=== PATIENT | male | born 1940 | race Caucasian/White ===

== ENCOUNTER 2018-11-11 12:14 | Outpatient (CLI) | payer MEDICARE ==
--- NOTE | 2018-11-11 12:30 | RAD ---
RADIOGRAPH CHEST 2 VIEWS: HISTORY: 78-year-old male with dyspnea. FINDINGS: There is no air space density, pulmonary edema, pleural effusion, pneumothorax, or cardiomegaly. IMPRESSION: No acute cardiopulmonary findings. jn POS: [facility]
== END 2018-11-11 12:15 | disposition home or self-care (01) ==
LOC: RAD 12:14
PROVIDERS: ATTEND Internal Medicine Pulmonary Disease
DX: R06.00 Dyspnea, unspecified (principal)
CPT/HCPCS: 71046

== ENCOUNTER 2022-02-10 16:11 | Inpatient (IN) | payer MEDICARE ==
[2022-02-10] MEDS ORDERED: Albuterol Sulfate 2.5 mg/3 ml Neb ONE (16:16)
[2022-02-10] MEDS ORDERED: Albuterol Sulfate 2.5 mg/0.5 ml Neb ONE ×2 (16:16→17:58)
[2022-02-10 16:27] LABS: Hemoglobin 11.2 g/dL (14.0-18.0); Mean Corpuscular HGB CONC 30.9 g/dL (32.0-36.0); Mean Corpuscular Volume 80.7 fL (78.0-98.0); Mean Platelet Volume 8.1 fL (7.4-10.4); Platelet Count 308 thou/uL (130-400); RBC Distribution Width 14.5 % (11.5-14.5); Red Blood Cell (RBC) Count 4.47 mill/uL (4.70-6.10); White Blood Cell (WBC) Count 18.3 thou/uL (4.8-10.8)
[2022-02-10 16:43] LABS: Band 16 % (5-11); Lymphocytes 3 % (21-51); MDiff Complete? YES; Monocytes 8 % (0-10); Neutrophil 66 % (42-75); Platelet Morphology Comment Appears Adequate; Polychromasia SLIGHT = 2-3 cells (100X) (0-2/hpf); Reactive Lymphocytes 7 % (0-10)
[2022-02-10 16:54] LABS: ALT (SGPT) 34 U/L (8-55); AST (SGOT) 67 U/L (5-34); Albumin 3.8 g/dL (3.4-4.8); Alkaline Phosphatase 57 U/L (40-110); Anion Gap 21 mmol/L (10-20); BUN (Urea Nitrogen) 41 mg/dL (8.4-25.7); Bilirubin, Total 0.4 mg/dL (0.2-1.2); Calc. Creatinine Clearance 0 mL/min (70-130); Carbon Dioxide 19 mmol/L (23-31); Chloride 95 mmol/L (98-107); Globulin 2.8 g/dL (2.4-3.5); Glucose 174 mg/dL (83-110); Potassium 5.7 mmol/L (3.5-5.1); Protein, Total 6.6 g/dL (5.8-8.1); Sodium 129 mmol/L (136-145)
[2022-02-10] MEDS ORDERED: Lorazepam 2 MG/ML VIAL ONE ×3 (17:05→17:56)
[2022-02-10] MEDS ORDERED: Cefepime 2 GM VIAL ONE (17:10)
[2022-02-10 17:17] LABS: CKMB 15.2 ng/mL (0-6.6)
[2022-02-10 17:27] LABS: SARS-CoV-2 NAA Rapid Test Not Detected (NotDetected)
[2022-02-10] MEDS ORDERED: Vancomycin 1.5 GRAM/300 ML BAG 1.5 GM in Premix Bag 1 BAG IVPB SCH (17:30)
[2022-02-10 17:45] LABS: Actual Bicarbonate (HCO3a) 23.4 mEq/L (22-28); Analyzer IN Cardio ER; Base Excess (BEa) 0.2 mEq/L (-2.0 to +3.0); Carboxyhemoglobin (COHb) 0.3 gm% (0.0-3.0); Hemoglobin (Hb) 11.3 g/dL (14.0-18.0); O2 Tension (PaO2), arterial 80.3 mmHg (> 60.0); Potassium - ABG Lab 4.87 mmol/L (3.70-5.30); pH, Arterial 7.47 (7.35-7.45)
[2022-02-10 17:46] LABS: Puncture Site RBA
[2022-02-10] MEDS ORDERED: Furosemide 40 MG/4 ML VIAL SLOW IVP SCH (18:45)
[2022-02-10] MEDS ORDERED: Benzonatate 100 MG CAP PO PRN (18:45)
[2022-02-10] MEDS ORDERED: Cepastat Lozenges 1 LOZ PO PRN (18:45)
[2022-02-10] MEDS ORDERED: Acetaminophen 325 MG TAB PO PRN (18:45)
[2022-02-10] MEDS ORDERED: Ondansetron ODT 4 MG TAB PO PRN (18:45)
[2022-02-10] MEDS ORDERED: Acetaminophen 325 MG Suppository ONE (19:06)
[2022-02-10 20:14] LABS: Lactic Acid 1.4 mmol/L (0.5-2.2)
[2022-02-10 20:43] LABS: CKMB 11.5 ng/mL (0-6.6)
[2022-02-10] MEDS: Heparin 5,000 UNITS/ML VIAL SC SCH (21:11)
[2022-02-10] MEDS: cefTRIAXone\\ROCEPHIN 1 GM in Sodium Chloride 0.9% 100 ML IVPB SCH (21:11)
[2022-02-10] MEDS: Famotidine 20 MG TAB PO SCH (21:12)
[2022-02-10] MEDS: Thiamine HCl 200 MG/2 ML VIAL SLOW IVP SCH (22:05)
[2022-02-10] MEDS: Azithromycin 500 MG in Sodium Chloride 0.9% 250 ML 250 ML IVPB SCH (22:05)
[2022-02-11 00:23] LABS: CKMB 10.9 ng/mL (0-6.6)
[2022-02-11] MEDS: Lorazepam 2 MG/ML VIAL SLOW IVP PRN ×2 (01:31→05:27)
[2022-02-11 03:37] LABS: Hemoglobin 9.7 g/dL (14.0-18.0); Mean Corpuscular HGB CONC 30.9 g/dL (32.0-36.0); Mean Corpuscular Hemoglobin 25.5 pg (27.0-31.0); Mean Corpuscular Volume 82.6 fL (78.0-98.0); Mean Platelet Volume 8.1 fL (7.4-10.4); Platelet Count 212 thou/uL (130-400); RBC Distribution Width 14.3 % (11.5-14.5); Red Blood Cell (RBC) Count 3.82 mill/uL (4.70-6.10); White Blood Cell (WBC) Count 13.4 thou/uL (4.8-10.8)
[2022-02-11 03:51] LABS: Anion Gap 15 mmol/L (10-20); BUN (Urea Nitrogen) 45 mg/dL (8.4-25.7); Calc. Creatinine Clearance 33 mL/min (70-130); Calcium 8.6 mg/dL (7.8-10.44); Carbon Dioxide 23 mmol/L (23-31); Chloride 96 mmol/L (98-107); Glucose 232 mg/dL (83-110); Iron Less than 8 ug/dL (65-175); Iron Binding Capacity, Total 234 mcg/dL (261-462); Potassium 3.8 mmol/L (3.5-5.1); Sodium 130 mmol/L (136-145)
[2022-02-11 03:53] LABS: Creatinine, Urine Less than 20.00 mg/dL (63-166); Sodium, Urine 101 mmol/L (Not Available)
[2022-02-11 04:45] LABS: Band 27 % (5-11); Lymphocytes 2 % (21-51); MDiff Complete? YES; Monocytes 4 % (0-10); Myelocyte 1 % (0-0); Neutrophil 66 % (42-75)
[2022-02-11] MEDS: Mometasone/Formoterol 200/5 60 PUFF INH SCH ×2 (07:26→19:40)
[2022-02-11] MEDS: Folic Acid 1 MG TAB PO SCH (10:26)
[2022-02-11] MEDS: methylPREDNISolone Sod Succ 40 MG VIAL IVP SCH ×2 (12:53→22:15)
[2022-02-11] MEDS: Heparin 5,000 UNITS/ML VIAL SC SCH ×3 (12:53→20:10)
[2022-02-11] MEDS ORDERED: Lactated Ringer's 1,000 ML IV SCH (15:45)
[2022-02-11] MEDS ORDERED: Lactated Ringer's 500 ML IV SCH (16:00)
[2022-02-11 16:37] LABS: Troponin I 0.088 ng/mL (< 0.028)
[2022-02-11] MEDS ORDERED: Acetaminophen 650 MG Suppository PR PRN (17:56)
[2022-02-11] MEDS: Thiamine HCl 200 MG/2 ML VIAL SLOW IVP SCH (18:44)
[2022-02-11 19:54] VITALS: BMI 21.9
[2022-02-11] MEDS: Azithromycin 500 MG in Sodium Chloride 0.9% 250 ML 250 ML IVPB SCH (20:04)
[2022-02-11] MEDS: cefTRIAXone\\ROCEPHIN 1 GM in Sodium Chloride 0.9% 100 ML IVPB SCH (20:06)
[2022-02-11] MEDS: Famotidine 20 MG TAB PO SCH (20:10)
[2022-02-11] MEDS ORDERED: Vancomycin 1 GM in Premix Bag 1 BAG IVPB SCH (21:00)
[2022-02-11 22:06] LABS: Troponin I 0.377 ng/mL (< 0.028)
[2022-02-11] MEDS: VANCOMYCIN 1.25 GM/250 ML BAG 1.25 GM in Premix Bag 1 BAG IVPB SCH (22:15)
[2022-02-12 01:14] LABS: Troponin I 0.433 ng/mL (< 0.028)
[2022-02-12 03:49] LABS: Anion Gap 18 mmol/L (10-20); BUN (Urea Nitrogen) 47 mg/dL (8.4-25.7); Calc. Creatinine Clearance 35 mL/min (70-130); Calcium 8.9 mg/dL (7.8-10.44); Carbon Dioxide 24 mmol/L (23-31); Chloride 101 mmol/L (98-107); Glucose 153 mg/dL (83-110); Potassium 3.6 mmol/L (3.5-5.1); Sodium 139 mmol/L (136-145)
[2022-02-12 04:48] LABS: Band 14 % (5-11); Hemoglobin 10.1 g/dL (14.0-18.0); Lymphocytes 5 % (21-51); MDiff Complete? YES; Mean Corpuscular HGB CONC 31.1 g/dL (32.0-36.0); Mean Corpuscular Hemoglobin 25.8 pg (27.0-31.0); Mean Corpuscular Volume 83.2 fL (78.0-98.0); Mean Platelet Volume 8.2 fL (7.4-10.4); Monocytes 1 % (0-10); Neutrophil 80 % (42-75); Platelet Count 252 thou/uL (130-400); RBC Distribution Width 14.1 % (11.5-14.5); Red Blood Cell (RBC) Count 3.93 mill/uL (4.70-6.10); White Blood Cell (WBC) Count 17.7 thou/uL (4.8-10.8)
[2022-02-12 05:19] LABS: Critical Call Chem Troponin I RESULT DECREASING; Troponin I 0.401 ng/mL (< 0.028)
[2022-02-12] MEDS: methylPREDNISolone Sod Succ 40 MG VIAL IVP SCH ×3 (05:45→21:39)
[2022-02-12] MEDS ORDERED: Electrolyte Replacement Protocol FS PRN (05:45)
[2022-02-12] MEDS: Mometasone/Formoterol 200/5 60 PUFF INH SCH ×2 (07:06→20:11)
[2022-02-12] MEDS ORDERED: Magnesium Sulfate 2 GM in Sodium Chloride 0.9% 100 ML IVPB SCH (08:00)
[2022-02-12] MEDS: Heparin 5,000 UNITS/ML VIAL SC SCH ×3 (08:04→20:26)
[2022-02-12] MEDS: Folic Acid 1 MG TAB PO SCH (08:07)
[2022-02-12] MEDS: Lactated Ringer's 1,000 ML IV SCH ×2 (08:54→21:20)
[2022-02-12] MEDS ORDERED: Diltiazem 125 MG in Sodium Chloride 0.9% 100 ML IVPB SCH (14:45)
[2022-02-12] MEDS ORDERED: Lorazepam 2 MG/ML VIAL SLOW IVP SCH (16:45)
[2022-02-12] MEDS: Thiamine HCl 200 MG/2 ML VIAL SLOW IVP SCH (18:03)
[2022-02-12] MEDS: Lorazepam 2 MG/ML VIAL SLOW IVP PRN ×2 (18:04→23:39)
[2022-02-12] MEDS: Azithromycin 500 MG in Sodium Chloride 0.9% 250 ML 250 ML IVPB SCH (18:04)
[2022-02-12] MEDS: Famotidine 20 MG TAB PO SCH (20:25)
[2022-02-12] MEDS: cefTRIAXone\\ROCEPHIN 1 GM in Sodium Chloride 0.9% 100 ML IVPB SCH (20:26)
[2022-02-12 20:31] LABS: Vancomycin, Trough 10.7 ug/mL
[2022-02-12] MEDS: VANCOMYCIN 1.25 GM/250 ML BAG 1.25 GM in Premix Bag 1 BAG IVPB SCH (21:26)
[2022-02-12] MEDS: Vancomycin HCl 750 MG in Sodium Chloride 0.9% 250 ML 250 ML IVPB SCH (21:39)
[2022-02-13 03:56] LABS: Hemoglobin 10.1 g/dL (14.0-18.0); Mean Corpuscular HGB CONC 32.3 g/dL (32.0-36.0); Mean Corpuscular Hemoglobin 27.1 pg (27.0-31.0); Mean Corpuscular Volume 83.9 fL (78.0-98.0); Mean Platelet Volume 7.8 fL (7.4-10.4); Platelet Count 282 thou/uL (130-400); RBC Distribution Width 14.1 % (11.5-14.5); Red Blood Cell (RBC) Count 3.72 mill/uL (4.70-6.10); White Blood Cell (WBC) Count 17.5 thou/uL (4.8-10.8)
[2022-02-13 03:58] LABS: Anion Gap 17 mmol/L (10-20); BUN (Urea Nitrogen) 45 mg/dL (8.4-25.7); Calc. Creatinine Clearance 40 mL/min (70-130); Calcium 8.9 mg/dL (7.8-10.44); Carbon Dioxide 25 mmol/L (23-31); Cardiac Risk 2.3 (Less than 4.5); Chloride 106 mmol/L (98-107); Cholesterol 123 mg/dl (< 200 Desired); Glucose 174 mg/dL (83-110); HDL Cholesterol 53 mg/dL (>60 Neg Risk); LDL Cholesterol, Calculated 52 mg/dL; Potassium 3.4 mmol/L (3.5-5.1); Sodium 145 mmol/L (136-145); Triglycerides 92 mg/dL (Less than 150)
[2022-02-13 04:10] LABS: Band 3 % (5-11); Lymphocytes 1 % (21-51); MDiff Complete? YES; Metamyelocyte 2 % (0-0); Monocytes 2 % (0-10); Myelocyte 1 % (0-0); Neutrophil 91 % (42-75)
[2022-02-13] MEDS: methylPREDNISolone Sod Succ 40 MG VIAL IVP SCH ×2 (05:10→17:32)
[2022-02-13] MEDS: Aspirin 81 mg Enteric Coated Tablet PO SCH (07:32)
[2022-02-13] MEDS: Ferrous Gluconate 324 MG TAB PO SCH (07:32)
[2022-02-13] MEDS: Folic Acid 1 MG TAB PO SCH (07:32)
[2022-02-13] MEDS: Mometasone/Formoterol 200/5 60 PUFF INH SCH ×2 (07:37→19:12)
[2022-02-13] MEDS: Heparin 5,000 UNITS/ML VIAL SC SCH ×3 (07:49→20:41)
[2022-02-13] MEDS: Potassium Chloride 20 MEQ in Premix Bag 1 BAG IVPB SCH ×2 (07:49→11:05)
[2022-02-13] MEDS ORDERED: Potassium Chloride 20 MEQ TAB PO SCH (08:00)
[2022-02-13] MEDS ORDERED: Furosemide 20 MG/2 ML VIAL SLOW IVP SCH (08:30)
[2022-02-13] MEDS: Vancomycin HCl 750 MG in Sodium Chloride 0.9% 250 ML 250 ML IVPB SCH ×2 (09:52→21:34)
[2022-02-13] MEDS: Azithromycin 500 MG in Sodium Chloride 0.9% 250 ML 250 ML IVPB SCH (17:33)
[2022-02-13] MEDS: Thiamine HCl 200 MG/2 ML VIAL SLOW IVP SCH (17:33)
[2022-02-13] MEDS: Famotidine 20 MG TAB PO SCH (20:40)
[2022-02-13] MEDS: cefTRIAXone\\ROCEPHIN 1 GM in Sodium Chloride 0.9% 100 ML IVPB SCH (20:41)
[2022-02-14 04:00] LABS: Anion Gap 14 mmol/L (10-20); BUN (Urea Nitrogen) 40 mg/dL (8.4-25.7); Calc. Creatinine Clearance 44 mL/min (70-130); Calcium 8.4 mg/dL (7.8-10.44); Carbon Dioxide 25 mmol/L (23-31); Chloride 108 mmol/L (98-107); Glucose 196 mg/dL (83-110); Potassium 3.6 mmol/L (3.5-5.1); Sodium 143 mmol/L (136-145)
[2022-02-14 04:23] LABS: Band 3 % (5-11); Hemoglobin 9.5 g/dL (14.0-18.0); Hypochromia MODERATE=16-30 cells (100X) (0-5/hpf); Lymphocytes 3 % (21-51); MDiff Complete? YES; Mean Corpuscular HGB CONC 29.1 g/dL (32.0-36.0); Mean Corpuscular Hemoglobin 24.8 pg (27.0-31.0); Mean Platelet Volume 7.6 fL (7.4-10.4); Monocytes 2 % (0-10); Myelocyte 1 % (0-0); Neutrophil 91 % (42-75); Nucleated RBC 1 % (0); Platelet Count 322 thou/uL (130-400); Platelet Morphology Comment Appears Adequate; Polychromasia SLIGHT = 2-3 cells (100X) (0-2/hpf); RBC Distribution Width 14.5 % (11.5-14.5); Red Blood Cell (RBC) Count 3.85 mill/uL (4.70-6.10); Reflex for Review?? YES; Toxic Granulation SLIGHT; White Blood Cell (WBC) Count 19.6 thou/uL (4.8-10.8)
[2022-02-14] MEDS: methylPREDNISolone Sod Succ 40 MG VIAL IVP SCH (05:17)
[2022-02-14] MEDS: Mometasone/Formoterol 200/5 60 PUFF INH SCH ×2 (07:17→18:40)
[2022-02-14 09:00] LABS: Vancomycin, Trough 18.8 ug/mL
[2022-02-14] MEDS ORDERED: Amoxicillin/Potassium Clav 875 MG TAB PO SCH (09:00)
[2022-02-14] MEDS ORDERED: Furosemide 20 MG/2 ML VIAL SLOW IVP SCH (09:00)
[2022-02-14] MEDS: Aspirin 81 mg Enteric Coated Tablet PO SCH (10:08)
[2022-02-14] MEDS: Heparin 5,000 UNITS/ML VIAL SC SCH ×2 (10:08→14:50)
[2022-02-14] MEDS: Ferrous Gluconate 324 MG TAB PO SCH (10:08)
[2022-02-14] MEDS: Folic Acid 1 MG TAB PO SCH (10:08)
[2022-02-14] MEDS ORDERED: Potassium Chloride 20 MEQ TAB PO SCH (12:00)
[2022-02-14] MEDS ORDERED: cloNIDine 0.2 MG TAB PO SCH ×2 (14:15→21:00)
[2022-02-14] MEDS ORDERED: Lisinopril 10 MG TAB PO SCH (14:15)
[2022-02-14 16:32] VITALS: BP 144/67; TEMP 97.5
[2022-02-14] MEDS ORDERED: Arformoterol 15 MCG/2 ML NEB NEB SCH (18:30)
[2022-02-14] MEDS ORDERED: Budesonide 0.5 MG/2 ML NEB NEB SCH (18:30)
[2022-02-14] MEDS ORDERED: Lisinopril 5 MG TAB PO SCH (21:00)
[2022-02-14] MEDS ORDERED: Amlodipine 5 MG TAB PO SCH (21:00)
[2022-02-14] MEDS ORDERED: Metoprolol Tartrate 50 MG TAB PO SCH (21:00)
[2022-02-14] MEDS ORDERED: Lisinopril/Hydrochlorothiazide 10 mg/12.5 mg Tablet PO SCH (21:00)
[2022-02-15] MEDS ORDERED: predniSONE 20 MG TAB PO SCH (08:00)
[2022-02-15] MEDS ORDERED: Potassium Chloride 10 MEQ TAB PO SCH (08:00)
[2022-02-15] MEDS ORDERED: Amlodipine 5 MG TAB PO SCH (09:00)
[2022-02-15] MEDS ORDERED: Aspirin 325 MG TAB PO SCH (09:00)
[2022-02-15] MEDS ORDERED: Hydrochlorothiazide 25 MG TAB PO SCH (09:00)
[2022-02-15] MEDS ORDERED: Furosemide 20 MG TAB PO SCH (09:00)
== END 2022-02-14 19:21 | DRG 291 ==
LOC: ERS 16:11 → IMCU/EMU 18:06 → 2NO 02-14 07:11
PROVIDERS: ADMIT Hospitalist; ATTEND Hospitalist
PROC: 5A09357 Assistance with Respiratory Ventilation, Less than 24 Consecutive Hours, Continuous Positive Airway Pressure (ICD-10-PCS; principal; 2022-02-10)
DX: I13.0 Hypertensive heart and chronic kidney disease with heart failure and stage 1 through stage 4 chronic kidney disease, or unspecified chronic kidney disease (principal); I47.1 Supraventricular tachycardia; I50.33 Acute on chronic diastolic (congestive) heart failure; J96.21 Acute and chronic respiratory failure with hypoxia; N17.9 Acute kidney failure, unspecified; R78.81 Bacteremia; J44.1 Chronic obstructive pulmonary disease with (acute) exacerbation; E87.1 Hypo-osmolality and hyponatremia; I47.2 Ventricular tachycardia; Z20.822 Contact with and (suspected) exposure to COVID-19; E78.5 Hyperlipidemia, unspecified; Z96.611 Presence of right artificial shoulder joint; F10.10 Alcohol abuse, uncomplicated; R77.8 Other specified abnormalities of plasma proteins; N18.30 Chronic kidney disease, stage 3 unspecified; B95.7 Other staphylococcus as the cause of diseases classified elsewhere; I25.10 Atherosclerotic heart disease of native coronary artery without angina pectoris; D63.1 Anemia in chronic kidney disease; Z78.1 Physical restraint status; Z28.21 Immunization not carried out because of patient refusal; Z79.899 Other long term (current) drug therapy; Z79.51 Long term (current) use of inhaled steroids; Z79.82 Long term (current) use of aspirin; Z95.828 Presence of other vascular implants and grafts; Z98.890 Other specified postprocedural states; Z85.89 Personal history of malignant neoplasm of other organs and systems
CPT/HCPCS: 36415; 36600; 71045; 74230; 76770; 80048; 80053; 80061; 80202; 82553; 82570; 82728; 82805; 83540; 83550; 83605; 83735; 83880; 83930; 83935; 84145; 84300; 84484; 84540; 85025; 85060; 87040; 87077; 87086; 87149; 87186; 93005; 93010; 93306; 94640; 94660; 96361; 96365; 96374; 96375; 96376; J0456; J0692; J0696; J1644; J1940; J2060; J2920; J3370; J3411; J3475; J3480; J3490; J7050; J7120; J7611; J7620; J7626; U0002

== ENCOUNTER 2022-02-14 22:24 | Inpatient (IN) | payer MEDICARE ==
[2022-02-14 22:56] LABS: Actual Bicarbonate (HCO3v) 26 mEq/L (22-28); Analyzer IN Cardio ER; Base Excess 2.2 mEq/L (-2.0 to +3.0); Calcium, Ionized (venous) 1.07 mmol/L (1.16-1.32); Chloride (VBG) 105 mmol/L (98-106); Hemoglobin (Hb) 10.7 g/dL (12.6-17.4); Potassium (VBG) 3.78 mmol/L (3.70-5.30); Sodium 139.2 mmol/L (133-146); pH (venous) 7.47 (7.32-7.43)
[2022-02-14] MEDS ORDERED: predniSONE 20 MG TAB ONE (22:59)
[2022-02-14] MEDS ORDERED: cefTRIAXone\\ROCEPHIN 2 GM VIAL ONE (22:59)
[2022-02-14] MEDS ORDERED: Magnesium 2 GM/50 ML BAG (IN WATER) ONE (23:09)
[2022-02-14 23:21] LABS: Hemoglobin 9.9 g/dL (14.0-18.0); Mean Corpuscular HGB CONC 30.4 g/dL (32.0-36.0); Mean Corpuscular Hemoglobin 25.5 pg (27.0-31.0); Mean Corpuscular Volume 83.8 fL (78.0-98.0); Mean Platelet Volume 7.6 fL (7.4-10.4); Platelet Count 338 thou/uL (130-400); RBC Distribution Width 14.5 % (11.5-14.5); Red Blood Cell (RBC) Count 3.87 mill/uL (4.70-6.10); White Blood Cell (WBC) Count 21.4 thou/uL (4.8-10.8)
[2022-02-14 23:33] LABS: ALT (SGPT) 42 U/L (8-55); AST (SGOT) 48 U/L (5-34); Albumin 3.3 g/dL (3.4-4.8); Alkaline Phosphatase 62 U/L (40-110); Anion Gap 15 mmol/L (10-20); BUN (Urea Nitrogen) 41 mg/dL (8.4-25.7); Bilirubin, Total 0.4 mg/dL (0.2-1.2); Calc. Creatinine Clearance 0 mL/min (70-130); Calcium 8.4 mg/dL (7.8-10.44); Carbon Dioxide 25 mmol/L (23-31); Chloride 106 mmol/L (98-107); Globulin 2.1 g/dL (2.4-3.5); Glucose 196 mg/dL (83-110); Magnesium 1.8 mg/dL (1.6-2.6); Potassium 4.1 mmol/L (3.5-5.1); Protein, Total 5.4 g/dL (5.8-8.1); Sodium 142 mmol/L (136-145)
[2022-02-14 23:41] LABS: Band 15 % (5-11); Hypochromia SLIGHT = 6-15 cells (100X) (0-5/hpf); Lymphocytes 10 % (21-51); MDiff Complete? YES; Monocytes 10 % (0-10); Neutrophil 65 % (42-75); Platelet Morphology Comment Appears Adequate
[2022-02-14 23:45] LABS: Bacteria/HPF None Seen HPF (None Seen); Bilirubin Negative (Negative); Blood, Urine 3+ (Negative); Clarity Turbid (Clear); Glucose, Urine (Dipstick) Normal (Negative); Ketone, Urine Negative (Negative); Leukocyte 75 Leu/uL (Negative); Nitrite Negative (Negative); Protein, Urine (Dipstick) 30 mg/dL (Neg-Trace); RBC/HPF Greater than 50 HPF (0-3); Specific Gravity, Urine 1.016 (1.002-1.036); Squamous Epithelial 0-3 HPF (0-3); Urobilinogen Normal mg/dL (Less than 2); WBC/HPF Greater than 50 HPF (0-3); pH, Urine 5.5 (5.0-9.0)
[2022-02-15] MEDS ORDERED: Vancomycin 1.5 GRAM/300 ML BAG 1.5 GM in Premix Bag 1 BAG IVPB SCH (00:30)
[2022-02-15 00:31] LABS: CKMB 13.6 ng/mL (0-6.6)
[2022-02-15] MEDS ORDERED: Ondansetron ODT 4 MG TAB SL PRN (01:45)
[2022-02-15] MEDS ORDERED: Ondansetron PF 4 MG/2 ML Vial IVP PRN (01:45)
[2022-02-15] MEDS ORDERED: Acetaminophen 325 MG TAB PO PRN (01:45)
[2022-02-15 01:47] VITALS: BMI 25.4
[2022-02-15 02:16] LABS: Troponin I 0.567 ng/mL (< 0.028)
[2022-02-15 03:32] LABS: Actual Bicarbonate (HCO3a) 22.4 mEq/L (22-28); Base Excess (BEa) -2.6 mEq/L (-2.0 to +3.0); CO2 Tension 39.3 mmHg (35.0-45.0); Carboxyhemoglobin (COHb) 0.1 gm% (0.0-3.0); Hemoglobin (Hb) 10.6 g/dL (14.0-18.0); O2 Tension (PaO2), arterial 114.4 mmHg (> 60.0); Potassium - ABG Lab 3.84 mmol/L (3.70-5.30); pH, Arterial 7.37 (7.35-7.45)
[2022-02-15 03:35] LABS: ALV-art Gradient 86.025 mmHg (0-20); Puncture Site RRA
[2022-02-15] MEDS ORDERED: Magnesium 2 GM/50 ML(in water) 2 GM in Premix Bag 1 BAG IVPB SCH (04:00)
[2022-02-15] MEDS ORDERED: Acetaminophen 650 MG Suppository PR PRN (06:29)
[2022-02-15] MEDS ORDERED: Sodium Chloride 0.9% 1,000 ML IV SCH ×2 (06:45→09:12)
[2022-02-15] MEDS ORDERED: Sodium Chloride 0.9% 500 ML IV SCH (07:00)
[2022-02-15] MEDS ORDERED: VANCOMYCIN 1.25 GM/250 ML BAG IVPB SCH (09:00)
[2022-02-15] MEDS ORDERED: Morphine 2 MG/ML VIAL SLOW IVP PRN (09:10)
[2022-02-15] MEDS ORDERED: HumaLOG 300 UNITS/3 ML VIAL SC PRN (09:17)
[2022-02-15] MEDS ORDERED: Dextrose 5% in Water 1,000 ML IV PRN (09:17)
[2022-02-15] MEDS ORDERED: Dextrose 50% Abboject 50 ML SYRINGE SLOW IVP PRN (09:17)
[2022-02-15] MEDS: Cefepime 2 GM in Sodium Chloride 0.9% 100 ML IVPB SCH ×2 (10:16→20:05)
[2022-02-15] MEDS: Enoxaparin Sodium 40 MG/0.4 ML SYRINGE SC SCH (10:17)
[2022-02-15] MEDS: methylPREDNISolone Sod Succ 40 MG VIAL IVP SCH (10:18)
[2022-02-15] MEDS: Pantoprazole 40 MG VIAL IVP SCH (10:21)
[2022-02-15] MEDS: HumaLOG 300 UNITS/3 ML VIAL SC PRN ×2 (12:12→17:05)
[2022-02-15] MEDS ORDERED: Metoprolol Tartrate 50 MG TAB PO SCH (12:30)
[2022-02-15] MEDS: Arformoterol 15 MCG/2 ML NEB NEB SCH (18:37)
[2022-02-15] MEDS: Budesonide 0.5 MG/2 ML NEB NEB SCH (18:38)
[2022-02-15 19:27] LABS: SARS-CoV-2 NAA Rapid Test Not Detected (NotDetected)
[2022-02-15] MEDS: Metoprolol Tartrate 50 MG TAB PO SCH (20:06)
[2022-02-15] MEDS: MUCINEX INSTASOOTHE SPRY (115 ML BOT) PO PRN (21:49)
[2022-02-16] MEDS ORDERED: VANCOMYCIN 1.25 GM/250 ML BAG 1.25 GM in Premix Bag 1 BAG IVPB SCH (01:00)
[2022-02-16 04:14] LABS: Hemoglobin A1c 6.4 % (4.0-6.0)
[2022-02-16 04:27] LABS: Anisocytosis SLIGHT = 6-15 cells (100X) (0-5/hpf); Band 1 % (5-11); Elliptocytes SLIGHT = 2-5 cells (100X) (0-1/hpf); Hemoglobin 9.8 g/dL (14.0-18.0); Hypochromia SLIGHT = 6-15 cells (100X) (0-5/hpf); Lymphocytes 7 % (21-51); MDiff Complete? YES; Mean Corpuscular HGB CONC 30.4 g/dL (32.0-36.0); Mean Corpuscular Hemoglobin 25.3 pg (27.0-31.0); Mean Corpuscular Volume 83.2 fL (78.0-98.0); Monocytes 5 % (0-10); Neutrophil 87 % (42-75); Nucleated RBC 1 % (0); Platelet Count 313 thou/uL (130-400); Platelet Morphology Comment Appears Adequate; Polychromasia SLIGHT = 2-3 cells (100X) (0-2/hpf); RBC Distribution Width 14.6 % (11.5-14.5); Red Blood Cell (RBC) Count 3.85 mill/uL (4.70-6.10); White Blood Cell (WBC) Count 23.2 thou/uL (4.8-10.8)
[2022-02-16 04:29] LABS: Anion Gap 13 mmol/L (10-20); BUN (Urea Nitrogen) 36 mg/dL (8.4-25.7); Calc. Creatinine Clearance 50 mL/min (70-130); Calcium 8.4 mg/dL (7.8-10.44); Carbon Dioxide 26 mmol/L (23-31); Chloride 109 mmol/L (98-107); Glucose 117 mg/dL (83-110); Potassium 3.9 mmol/L (3.5-5.1); Sodium 144 mmol/L (136-145)
[2022-02-16] MEDS: Arformoterol 15 MCG/2 ML NEB NEB SCH ×2 (06:52→18:05)
[2022-02-16] MEDS: Budesonide 0.5 MG/2 ML NEB NEB SCH ×2 (06:52→18:05)
[2022-02-16] MEDS: Metoprolol Tartrate 50 MG TAB PO SCH ×2 (09:15→21:46)
[2022-02-16] MEDS: Amlodipine 10 MG TAB PO SCH (09:15)
[2022-02-16] MEDS: Aspirin 81 mg Enteric Coated Tablet PO SCH (09:15)
[2022-02-16] MEDS: Enoxaparin Sodium 40 MG/0.4 ML SYRINGE SC SCH (09:15)
[2022-02-16] MEDS: methylPREDNISolone Sod Succ 40 MG VIAL IVP SCH (09:15)
[2022-02-16] MEDS: Pantoprazole 40 MG VIAL IVP SCH (09:15)
[2022-02-16] MEDS: Thiamine 100 MG TAB PO SCH (09:16)
[2022-02-16] MEDS: Cefepime 2 GM in Sodium Chloride 0.9% 100 ML IVPB SCH ×2 (09:16→21:46)
[2022-02-16] MEDS: HumaLOG 300 UNITS/3 ML VIAL SC PRN (16:50)
[2022-02-16] MEDS: MUCINEX INSTASOOTHE SPRY (115 ML BOT) PO PRN (21:46)
[2022-02-17 00:38] LABS: Vancomycin, Trough 13.3 ug/mL
[2022-02-17 04:34] LABS: Anion Gap 15 mmol/L (10-20); BUN (Urea Nitrogen) 36 mg/dL (8.4-25.7); Calc. Creatinine Clearance 50 mL/min (70-130); Carbon Dioxide 20 mmol/L (23-31); Chloride 107 mmol/L (98-107); Potassium 4.4 mmol/L (3.5-5.1); Sodium 138 mmol/L (136-145)
[2022-02-17 04:35] LABS: Calcium 8.5 mg/dL (7.8-10.44); Glucose 124 mg/dL (83-110)
[2022-02-17 04:39] LABS: Band 14 % (5-11); Hemoglobin 10.4 g/dL (14.0-18.0); Hypochromia SLIGHT = 6-15 cells (100X) (0-5/hpf); Lymphocytes 8 % (21-51); MDiff Complete? YES; Mean Corpuscular HGB CONC 29.6 g/dL (32.0-36.0); Mean Corpuscular Hemoglobin 25.1 pg (27.0-31.0); Mean Corpuscular Volume 84.9 fL (78.0-98.0); Mean Platelet Volume 8.7 fL (7.4-10.4); Monocytes 5 % (0-10); Neutrophil 73 % (42-75); Platelet Count 255 thou/uL (130-400); Platelet Morphology Comment Appears Adequate; Red Blood Cell (RBC) Count 4.12 mill/uL (4.70-6.10); White Blood Cell (WBC) Count 22.6 thou/uL (4.8-10.8)
[2022-02-17] MEDS: Arformoterol 15 MCG/2 ML NEB NEB SCH ×2 (07:14→18:41)
[2022-02-17] MEDS: Budesonide 0.5 MG/2 ML NEB NEB SCH ×2 (07:14→18:42)
[2022-02-17] MEDS: Aspirin 81 mg Enteric Coated Tablet PO SCH (08:28)
[2022-02-17] MEDS: Metoprolol Tartrate 50 MG TAB PO SCH ×2 (08:28→21:18)
[2022-02-17] MEDS: Thiamine 100 MG TAB PO SCH (08:28)
[2022-02-17] MEDS: Enoxaparin Sodium 40 MG/0.4 ML SYRINGE SC SCH (08:28)
[2022-02-17] MEDS: Amlodipine 10 MG TAB PO SCH (08:28)
[2022-02-17] MEDS ORDERED: methylPREDNISolone Sod Succ 40 MG VIAL IVP SCH (09:00)
[2022-02-17] MEDS: Cefepime 2 GM in Sodium Chloride 0.9% 100 ML IVPB SCH ×2 (10:02→21:18)
[2022-02-17] MEDS: Pantoprazole 40 MG VIAL IVP SCH (10:03)
[2022-02-17] MEDS: HumaLOG 300 UNITS/3 ML VIAL SC PRN (16:38)
[2022-02-18] MEDS: MUCINEX INSTASOOTHE SPRY (115 ML BOT) PO PRN (06:17)
[2022-02-18] MEDS: Budesonide 0.5 MG/2 ML NEB NEB SCH ×2 (07:31→18:43)
[2022-02-18] MEDS: Arformoterol 15 MCG/2 ML NEB NEB SCH ×2 (07:31→18:44)
[2022-02-18] MEDS: predniSONE 20 MG TAB PO SCH (08:59)
[2022-02-18] MEDS: Thiamine 100 MG TAB PO SCH (08:59)
[2022-02-18] MEDS: Amlodipine 10 MG TAB PO SCH (08:59)
[2022-02-18] MEDS: Metoprolol Tartrate 50 MG TAB PO SCH ×2 (09:00→21:32)
[2022-02-18] MEDS: Enoxaparin Sodium 40 MG/0.4 ML SYRINGE SC SCH (09:00)
[2022-02-18] MEDS: Aspirin 81 mg Enteric Coated Tablet PO SCH (09:00)
[2022-02-18] MEDS: Cefepime 2 GM in Sodium Chloride 0.9% 100 ML IVPB SCH ×2 (09:00→21:31)
[2022-02-19] MEDS: MUCINEX INSTASOOTHE SPRY (115 ML BOT) PO PRN ×2 (00:36→04:29)
[2022-02-19] MEDS: Arformoterol 15 MCG/2 ML NEB NEB SCH (07:02)
[2022-02-19] MEDS: Budesonide 0.5 MG/2 ML NEB NEB SCH (07:04)
[2022-02-19 08:12] VITALS: BP 144/54; TEMP 98.6
[2022-02-19] MEDS: Aspirin 81 mg Enteric Coated Tablet PO SCH (08:50)
[2022-02-19] MEDS: Thiamine 100 MG TAB PO SCH (08:50)
[2022-02-19] MEDS: Enoxaparin Sodium 40 MG/0.4 ML SYRINGE SC SCH (08:50)
[2022-02-19] MEDS: predniSONE 20 MG TAB PO SCH (08:50)
[2022-02-19] MEDS: Amlodipine 10 MG TAB PO SCH (08:50)
[2022-02-19] MEDS: Metoprolol Tartrate 50 MG TAB PO SCH (08:50)
[2022-02-19] MEDS: Cefepime 2 GM in Sodium Chloride 0.9% 100 ML IVPB SCH (08:51)
[2022-02-19] MEDS ORDERED: Cefdinir 300 MG CAP PO SCH (21:00)
== END 2022-02-19 13:53 | DRG 871 ==
LOC: ERS 22:24 → CCU 23:42 → T4-B 02-17 17:18
PROVIDERS: ADMIT Emergency Medicine; ATTEND Emergency Medicine
PROC: 5A09457 Assistance with Respiratory Ventilation, 24-96 Consecutive Hours, Continuous Positive Airway Pressure (ICD-10-PCS; principal; 2022-02-14)
PROC: 3E03329 Introduction of Other Anti-infective into Peripheral Vein, Percutaneous Approach (ICD-10-PCS; 2022-02-14)
DX: A41.9 Sepsis, unspecified organism (principal); J96.01 Acute respiratory failure with hypoxia; G93.41 Metabolic encephalopathy; J18.9 Pneumonia, unspecified organism; J44.1 Chronic obstructive pulmonary disease with (acute) exacerbation; N17.9 Acute kidney failure, unspecified; N39.0 Urinary tract infection, site not specified; J44.0 Chronic obstructive pulmonary disease with (acute) lower respiratory infection; Z20.822 Contact with and (suspected) exposure to COVID-19; R65.20 Severe sepsis without septic shock; D64.9 Anemia, unspecified; R73.9 Hyperglycemia, unspecified; I10 Essential (primary) hypertension; E78.5 Hyperlipidemia, unspecified; T38.0X5A Adverse effect of glucocorticoids and synthetic analogues, initial encounter; Z79.82 Long term (current) use of aspirin; Z79.899 Other long term (current) drug therapy; Z79.52 Long term (current) use of systemic steroids; Z79.51 Long term (current) use of inhaled steroids
CPT/HCPCS: 36415; 36416; 36600; 71045; 74018; 80048; 80202; 81003; 81015; 82553; 82805; 83036; 83605; 83735; 83880; 84145; 84484; 85025; 86140; 87040; 87086; 87324; 87449; 89220; 93005; 94640; 94660; 96365; 96375; C9113; J0692; J0696; J1650; J1815; J2920; J3370; J3475; J3490; J7050; J7512; J7620; J7626; U0002

== ENCOUNTER 2022-04-15 16:23 | Inpatient (IN) | payer MEDICARE ==
[~2022-04-15 16:23] MED LIST: Iopamidol-370 76% 500 ML 1 ML ONE
[2022-04-15 17:00] LABS: #Eosinphils 0.2 thou/uL (0.0-0.7); #Lymphocytes 1.1 thou/uL (1.20-3.40); #Neutrophils 5.4 thou/uL (1.40-6.50); %Basophils 0.5 % (0.0-1.0); %Lymphocytes 13.9 % (21.0-51.0); %Monocytes 12.6 % (0.0-10.0); Hemoglobin 10.7 g/dL (14.0-18.0); Mean Corpuscular HGB CONC 30.9 g/dL (32.0-36.0); Mean Corpuscular Volume 93.9 fL (78.0-98.0); Mean Platelet Volume 8.2 fL (7.4-10.4); Platelet Count 333 thou/uL (130-400); RBC Distribution Width 20.2 % (11.5-14.5); Red Blood Cell (RBC) Count 3.69 mill/uL (4.70-6.10); White Blood Cell (WBC) Count 7.5 thou/uL (4.8-10.8)
[2022-04-15 17:23] LABS: ALT (SGPT) 16 U/L (8-55); AST (SGOT) 31 U/L (5-34); Albumin 3.5 g/dL (3.4-4.8); Alkaline Phosphatase 68 U/L (40-110); Anion Gap 16 mmol/L (10-20); BUN (Urea Nitrogen) 14 mg/dL (8.4-25.7); Bilirubin, Total 0.3 mg/dL (0.2-1.2); Calc. Creatinine Clearance 0 mL/min (70-130); Calcium 8.7 mg/dL (7.8-10.44); Carbon Dioxide 23 mmol/L (23-31); Chloride 105 mmol/L (98-107); Estimated GFR 76; Globulin 2.8 g/dL (2.4-3.5); Glucose 126 mg/dL (83-110); Potassium 3.7 mmol/L (3.5-5.1); Protein, Total 6.3 g/dL (5.8-8.1); Sodium 140 mmol/L (136-145)
[2022-04-15 17:48] LABS: CKMB 2.6 ng/mL (0-6.6)
[2022-04-15] MEDS ORDERED: Aspirin Chewable 81 MG TAB ONE (21:00)
[2022-04-15] MEDS ORDERED: Enoxaparin Sodium 80 MG/0.8 ML SYRINGE ONE (23:11)
[2022-04-15] MEDS ORDERED: hydrALAZINE 20 MG/ML VIAL ONE (23:11)
[2022-04-15 23:59] LABS: Troponin I 0.045 ng/mL (< 0.028)
[2022-04-16 00:17] LABS: SARS-CoV-2 NAA Rapid Test Not Detected (NotDetected)
[2022-04-16] MEDS ORDERED: Labetalol HCl 100 MG/20 ML VIAL SLOW IVP PRN (00:17)
[2022-04-16] MEDS ORDERED: hydrALAZINE 20 MG/ML VIAL SLOW IVP PRN (00:17)
[2022-04-16] MEDS ORDERED: Ondansetron PF 4 MG/2 ML Vial IVP PRN (00:30)
[2022-04-16] MEDS ORDERED: Acetaminophen 325 MG TAB PO PRN (00:30)
[2022-04-16] MEDS ORDERED: Ondansetron ODT 4 MG TAB SL PRN (00:30)
[2022-04-16] MEDS ORDERED: Furosemide 20 MG/2 ML VIAL SLOW IVP SCH (00:30)
[2022-04-16] MEDS ORDERED: Amlodipine 10 MG TAB PO SCH (00:45)
[2022-04-16] MEDS ORDERED: Diltiazem HCl SR 60 mg Capsule PO SCH ×2 (01:00)
[2022-04-16 02:47] LABS: Troponin I 0.036 ng/mL (< 0.028)
[2022-04-16 02:51] LABS: Anion Gap 16 mmol/L (10-20); BUN (Urea Nitrogen) 15 mg/dL (8.4-25.7); Calc. Creatinine Clearance 0 mL/min (70-130); Calcium 8.8 mg/dL (7.8-10.44); Carbon Dioxide 23 mmol/L (23-31); Chloride 105 mmol/L (98-107); Estimated GFR 86; Glucose 103 mg/dL (83-110); Potassium 3.1 mmol/L (3.5-5.1); Sodium 141 mmol/L (136-145)
[2022-04-16 03:08] VITALS: BMI 25.0
[2022-04-16] MEDS ORDERED: Iopamidol-370 76% 500 ML 1 ML ONE (09:11)
[2022-04-16] MEDS: Lisinopril/Hydrochlorothiazide 20 mg/12.5 mg Tablet PO SCH (09:28)
[2022-04-16] MEDS: Metoprolol Tartrate 50 MG TAB PO SCH ×2 (09:28→22:33)
[2022-04-16] MEDS: cloNIDine 0.3 MG TAB PO SCH ×2 (09:28→22:21)
[2022-04-16] MEDS: Diltiazem HCl SR 60 mg Capsule PO SCH ×3 (09:28→22:22)
[2022-04-16] MEDS: Amlodipine 10 MG TAB PO SCH (09:28)
[2022-04-16] MEDS ORDERED: Potassium Chloride 20 MEQ TAB PO SCH (10:00)
[2022-04-16] MEDS ORDERED: Enoxaparin Sodium 40 MG/0.4 ML SYRINGE SC SCH (11:00)
[2022-04-16] MEDS: Enoxaparin Sodium 80 MG/0.8 ML SYRINGE SC SCH (22:22)
[2022-04-17 04:45] LABS: Anion Gap 13 mmol/L (10-20); BUN (Urea Nitrogen) 18 mg/dL (8.4-25.7); Calc. Creatinine Clearance 59 mL/min (70-130); Carbon Dioxide 25 mmol/L (23-31); Chloride 105 mmol/L (98-107); Potassium 3.4 mmol/L (3.5-5.1); Sodium 140 mmol/L (136-145)
[2022-04-17 04:46] LABS: Calcium 8.4 mg/dL (7.8-10.44); Estimated GFR 65; Glucose 119 mg/dL (83-110)
[2022-04-17] MEDS: Diltiazem HCl SR 60 mg Capsule PO SCH ×2 (05:49→15:11)
[2022-04-17 06:32] LABS: #Eosinphils 0.1 thou/uL (0.0-0.7); #Lymphocytes 1.2 thou/uL (1.20-3.40); #Monocytes 1.2 thou/uL (0.11-0.59); #Neutrophils 6.1 thou/uL (1.40-6.50); %Basophils 0.5 % (0.0-1.0); %Eosinophils 1.7 % (0.0-10.0); %Lymphocytes 13.8 % (21.0-51.0); %Monocytes 13.9 % (0.0-10.0); %Neutrophils 70.2 % (42.0-75.0); Hemoglobin 8.4 g/dL (14.0-18.0); Mean Corpuscular HGB CONC 30.9 g/dL (32.0-36.0); Mean Corpuscular Hemoglobin 28.6 pg (27.0-31.0); Mean Corpuscular Volume 92.6 fL (78.0-98.0); Mean Platelet Volume 8.8 fL (7.4-10.4); Platelet Count 258 thou/uL (130-400); Red Blood Cell (RBC) Count 2.94 mill/uL (4.70-6.10); White Blood Cell (WBC) Count 8.7 thou/uL (4.8-10.8)
[2022-04-17] MEDS ORDERED: Potassium Chloride 20 MEQ TAB PO SCH (08:45)
[2022-04-17] MEDS: Enoxaparin Sodium 80 MG/0.8 ML SYRINGE SC SCH ×2 (09:24→20:25)
[2022-04-17] MEDS: Amlodipine 10 MG TAB PO SCH (09:25)
[2022-04-17] MEDS: Metoprolol Tartrate 50 MG TAB PO SCH ×2 (09:30→20:24)
[2022-04-17] MEDS: Lisinopril/Hydrochlorothiazide 20 mg/12.5 mg Tablet PO SCH (09:30)
[2022-04-17] MEDS ORDERED: Furosemide 20 MG TAB PO SCH (09:45)
[2022-04-17] MEDS: Arformoterol 15 MCG/2 ML NEB NEB SCH (10:11)
[2022-04-17] MEDS: Budesonide 0.5 MG/2 ML NEB NEB SCH ×2 (10:14→19:11)
[2022-04-17 14:00] LABS: Hemoglobin 10.3 g/dL (14.0-18.0)
[2022-04-17 22:26] LABS: Hemoglobin 9.2 g/dL (14.0-18.0)
[2022-04-18] MEDS: Arformoterol 15 MCG/2 ML NEB NEB SCH ×3 (02:37→18:57)
[2022-04-18 04:29] LABS: Hemoglobin 8.6 g/dL (14.0-18.0); Mean Corpuscular Hemoglobin 29.1 pg (27.0-31.0); Mean Corpuscular Volume 94.1 fL (78.0-98.0); Mean Platelet Volume 8.2 fL (7.4-10.4); Platelet Count 255 thou/uL (130-400); RBC Distribution Width 19.4 % (11.5-14.5); Red Blood Cell (RBC) Count 2.96 mill/uL (4.70-6.10); White Blood Cell (WBC) Count 12.6 thou/uL (4.8-10.8)
[2022-04-18 04:46] LABS: Anion Gap 11 mmol/L (10-20); BUN (Urea Nitrogen) 24 mg/dL (8.4-25.7); Calc. Creatinine Clearance 56 mL/min (70-130); Calcium 8.2 mg/dL (7.8-10.44); Carbon Dioxide 24 mmol/L (23-31); Chloride 104 mmol/L (98-107); Estimated GFR 62; Glucose 102 mg/dL (83-110); Potassium 3.7 mmol/L (3.5-5.1); Sodium 135 mmol/L (136-145)
[2022-04-18] MEDS: Budesonide 0.5 MG/2 ML NEB NEB SCH ×2 (07:12→18:58)
[2022-04-18] MEDS ORDERED: Apixaban 5 MG TAB PO SCH (10:00)
[2022-04-18] MEDS: Furosemide 20 MG TAB PO SCH (10:45)
[2022-04-18] MEDS: Amlodipine 10 MG TAB PO SCH (10:46)
[2022-04-18] MEDS: Metoprolol Tartrate 50 MG TAB PO SCH ×2 (10:49→21:25)
[2022-04-18] MEDS: Tamsulosin HCl 0.4 MG CAP PO SCH (21:25)
[2022-04-18] MEDS: Apixaban 5 MG TAB PO SCH (21:25)
[2022-04-18] MEDS ORDERED: Acetaminophen 325 MG TAB PO PRN (22:17)
[2022-04-19 04:31] LABS: Hemoglobin 8.9 g/dL (14.0-18.0); Mean Corpuscular HGB CONC 31.4 g/dL (32.0-36.0); Mean Corpuscular Hemoglobin 29.5 pg (27.0-31.0); Mean Corpuscular Volume 93.9 fL (78.0-98.0); Mean Platelet Volume 8.2 fL (7.4-10.4); Platelet Count 232 thou/uL (130-400); RBC Distribution Width 18.9 % (11.5-14.5); Red Blood Cell (RBC) Count 3.01 mill/uL (4.70-6.10); White Blood Cell (WBC) Count 11.1 thou/uL (4.8-10.8)
[2022-04-19 04:59] LABS: Anion Gap 12 mmol/L (10-20); BUN (Urea Nitrogen) 22 mg/dL (8.4-25.7); Calc. Creatinine Clearance 61 mL/min (70-130); Calcium 8.2 mg/dL (7.8-10.44); Carbon Dioxide 25 mmol/L (23-31); Chloride 104 mmol/L (98-107); Estimated GFR 68; Glucose 99 mg/dL (83-110); Potassium 3.5 mmol/L (3.5-5.1); Sodium 137 mmol/L (136-145)
[2022-04-19] MEDS: Budesonide 0.5 MG/2 ML NEB NEB SCH ×2 (07:44→19:12)
[2022-04-19] MEDS: Arformoterol 15 MCG/2 ML NEB NEB SCH ×2 (07:47→19:11)
[2022-04-19] MEDS: Ferrous Sulfate 325 MG TAB PO SCH (09:51)
[2022-04-19] MEDS: Amlodipine 10 MG TAB PO SCH (09:52)
[2022-04-19] MEDS: Metoprolol Tartrate 50 MG TAB PO SCH ×2 (09:53→20:33)
[2022-04-19] MEDS: Apixaban 5 MG TAB PO SCH ×2 (09:54→20:34)
[2022-04-19] MEDS: Furosemide 20 MG TAB PO SCH (09:55)
[2022-04-19] MEDS: Tamsulosin HCl 0.4 MG CAP PO SCH (20:33)
[2022-04-20 04:43] LABS: Hemoglobin 9.2 g/dL (14.0-18.0); Mean Corpuscular HGB CONC 31.6 g/dL (32.0-36.0); Mean Corpuscular Hemoglobin 30.1 pg (27.0-31.0); Mean Platelet Volume 8.2 fL (7.4-10.4); Platelet Count 258 thou/uL (130-400); RBC Distribution Width 18.5 % (11.5-14.5); Red Blood Cell (RBC) Count 3.05 mill/uL (4.70-6.10); White Blood Cell (WBC) Count 9.7 thou/uL (4.8-10.8)
[2022-04-20 05:11] LABS: Anion Gap 14 mmol/L (10-20); BUN (Urea Nitrogen) 17 mg/dL (8.4-25.7); Calc. Creatinine Clearance 76 mL/min (70-130); Calcium 8.3 mg/dL (7.8-10.44); Carbon Dioxide 23 mmol/L (23-31); Chloride 105 mmol/L (98-107); Estimated GFR 87; Glucose 97 mg/dL (83-110); Potassium 3.7 mmol/L (3.5-5.1); Sodium 138 mmol/L (136-145)
[2022-04-20] MEDS: Budesonide 0.5 MG/2 ML NEB NEB SCH ×2 (07:26→18:26)
[2022-04-20] MEDS: Arformoterol 15 MCG/2 ML NEB NEB SCH ×2 (07:27→18:26)
[2022-04-20] MEDS: Apixaban 5 MG TAB PO SCH ×2 (08:54→19:51)
[2022-04-20] MEDS: Furosemide 20 MG TAB PO SCH (08:54)
[2022-04-20] MEDS: Ferrous Sulfate 325 MG TAB PO SCH (08:54)
[2022-04-20] MEDS: Metoprolol Tartrate 50 MG TAB PO SCH ×2 (08:54→19:50)
[2022-04-20] MEDS: Amlodipine 10 MG TAB PO SCH (08:54)
[2022-04-20] MEDS: Losartan 25 MG TAB PO SCH (08:56)
[2022-04-20] MEDS: Tamsulosin HCl 0.4 MG CAP PO SCH (19:51)
[2022-04-21 04:48] LABS: Hemoglobin 9.3 g/dL (14.0-18.0); Mean Corpuscular HGB CONC 30.7 g/dL (32.0-36.0); Mean Corpuscular Hemoglobin 28.8 pg (27.0-31.0); Mean Corpuscular Volume 93.6 fL (78.0-98.0); Mean Platelet Volume 8.8 fL (7.4-10.4); Platelet Count 264 thou/uL (130-400); RBC Distribution Width 18.5 % (11.5-14.5); Red Blood Cell (RBC) Count 3.22 mill/uL (4.70-6.10); White Blood Cell (WBC) Count 8.1 thou/uL (4.8-10.8)
[2022-04-21 05:09] LABS: Anion Gap 14 mmol/L (10-20); BUN (Urea Nitrogen) 15 mg/dL (8.4-25.7); Calc. Creatinine Clearance 74 mL/min (70-130); Carbon Dioxide 23 mmol/L (23-31); Chloride 107 mmol/L (98-107); Potassium 3.7 mmol/L (3.5-5.1); Sodium 140 mmol/L (136-145)
[2022-04-21 05:10] LABS: Calcium 8.4 mg/dL (7.8-10.44); Estimated GFR 87; Glucose 96 mg/dL (83-110)
[2022-04-21] MEDS: Arformoterol 15 MCG/2 ML NEB NEB SCH ×2 (06:50→19:33)
[2022-04-21] MEDS: Budesonide 0.5 MG/2 ML NEB NEB SCH ×2 (06:53→19:34)
[2022-04-21] MEDS: Amlodipine 10 MG TAB PO SCH (10:14)
[2022-04-21] MEDS: Losartan 25 MG TAB PO SCH (10:14)
[2022-04-21] MEDS: Ferrous Sulfate 325 MG TAB PO SCH (10:15)
[2022-04-21] MEDS: Furosemide 20 MG TAB PO SCH (10:15)
[2022-04-21] MEDS: Apixaban 5 MG TAB PO SCH ×2 (10:15→21:48)
[2022-04-21] MEDS: Metoprolol Tartrate 50 MG TAB PO SCH (10:15)
[2022-04-21] MEDS: Tamsulosin HCl 0.4 MG CAP PO SCH (21:48)
[2022-04-22] MEDS: Arformoterol 15 MCG/2 ML NEB NEB SCH ×2 (07:13→18:22)
[2022-04-22] MEDS: Budesonide 0.5 MG/2 ML NEB NEB SCH ×2 (07:15→18:23)
[2022-04-22] MEDS: Furosemide 20 MG TAB PO SCH (09:49)
[2022-04-22] MEDS: Losartan 25 MG TAB PO SCH (09:49)
[2022-04-22] MEDS: Apixaban 5 MG TAB PO SCH ×2 (09:49→22:13)
[2022-04-22] MEDS: Amlodipine 10 MG TAB PO SCH (09:49)
[2022-04-22] MEDS: Ferrous Sulfate 325 MG TAB PO SCH (09:49)
[2022-04-22] MEDS: Tamsulosin HCl 0.4 MG CAP PO SCH (22:12)
[2022-04-23] MEDS: Budesonide 0.5 MG/2 ML NEB NEB SCH (07:43)
[2022-04-23] MEDS: Arformoterol 15 MCG/2 ML NEB NEB SCH (07:43)
[2022-04-23 07:51] VITALS: BP 147/67; TEMP 98
[2022-04-23] MEDS: Ferrous Sulfate 325 MG TAB PO SCH (09:37)
[2022-04-23] MEDS: Losartan 25 MG TAB PO SCH (09:38)
[2022-04-23] MEDS: Furosemide 20 MG TAB PO SCH (09:38)
[2022-04-23] MEDS: Amlodipine 10 MG TAB PO SCH (09:38)
[2022-04-23] MEDS: Apixaban 5 MG TAB PO SCH (09:38)
== END 2022-04-23 10:10 | disposition home health service (06) | DRG 304 ==
LOC: ERS 16:23 → 2NO 23:09
PROVIDERS: ADMIT Student in an Organized Health Care Education/Training Program; ATTEND Student in an Organized Health Care Education/Training Program
DX: I16.1 Hypertensive emergency (principal); I26.99 Other pulmonary embolism without acute cor pulmonale; I50.32 Chronic diastolic (congestive) heart failure; I47.1 Supraventricular tachycardia; I16.0 Hypertensive urgency; I13.0 Hypertensive heart and chronic kidney disease with heart failure and stage 1 through stage 4 chronic kidney disease, or unspecified chronic kidney disease; J44.9 Chronic obstructive pulmonary disease, unspecified; R91.8 Other nonspecific abnormal finding of lung field; N28.1 Cyst of kidney, acquired; R31.0 Gross hematuria; R32 Unspecified urinary incontinence; N18.9 Chronic kidney disease, unspecified; E87.6 Hypokalemia; R33.9 Retention of urine, unspecified; I25.10 Atherosclerotic heart disease of native coronary artery without angina pectoris; D63.1 Anemia in chronic kidney disease; I73.9 Peripheral vascular disease, unspecified; R53.81 Other malaise; Z20.822 Contact with and (suspected) exposure to COVID-19; Z96.611 Presence of right artificial shoulder joint; Z95.820 Peripheral vascular angioplasty status with implants and grafts; Z98.890 Other specified postprocedural states; Z87.891 Personal history of nicotine dependence; Z79.82 Long term (current) use of aspirin; Z79.51 Long term (current) use of inhaled steroids; Z79.899 Other long term (current) drug therapy; Z85.828 Personal history of other malignant neoplasm of skin; I25.2 Old myocardial infarction; Z87.01 Personal history of pneumonia (recurrent); Z80.1 Family history of malignant neoplasm of trachea, bronchus and lung
CPT/HCPCS: 36415; 36416; 71045; 71275; 74178; 80048; 80053; 82553; 83880; 84484; 85025; 85027; 93005; 93010; 94640; 96372; 96374; J0360; J1650; J1940; J7626; Q9967; U0002; U0003; U0005

== ENCOUNTER 2022-05-05 19:06 | Inpatient (IN) | payer MEDICARE ==
[2022-05-05 19:44] LABS: #Eosinphils 0.1 thou/uL (0.0-0.7); #Lymphocytes 0.4 thou/uL (1.20-3.40); #Monocytes 0.4 thou/uL (0.11-0.59); #Neutrophils 16.9 thou/uL (1.40-6.50); %Basophils 0.1 % (0.0-1.0); %Eosinophils 0.4 % (0.0-10.0); %Lymphocytes 2.3 % (21.0-51.0); %Neutrophils 95.2 % (42.0-75.0); Hemoglobin 8.7 g/dL (14.0-18.0); Mean Corpuscular HGB CONC 31.8 g/dL (32.0-36.0); Mean Corpuscular Hemoglobin 28.4 pg (27.0-31.0); Mean Corpuscular Volume 89.5 fL (78.0-98.0); Mean Platelet Volume 7.4 fL (7.4-10.4); Platelet Count 322 thou/uL (130-400); RBC Distribution Width 16.6 % (11.5-14.5); Red Blood Cell (RBC) Count 3.07 mill/uL (4.70-6.10); White Blood Cell (WBC) Count 17.8 thou/uL (4.8-10.8)
[2022-05-05 20:05] LABS: ALT (SGPT) 13 U/L (8-55); AST (SGOT) 17 U/L (5-34); Albumin 3.3 g/dL (3.4-4.8); Alkaline Phosphatase 58 U/L (40-110); Anion Gap 18 mmol/L (10-20); BUN (Urea Nitrogen) 17 mg/dL (8.4-25.7); Bilirubin, Total 0.3 mg/dL (0.2-1.2); Calc. Creatinine Clearance 0 mL/min (70-130); Calcium 8.3 mg/dL (7.8-10.44); Carbon Dioxide 22 mmol/L (23-31); Chloride 100 mmol/L (98-107); Estimated GFR 68; Globulin 2.5 g/dL (2.4-3.5); Glucose 140 mg/dL (83-110); Potassium 4.2 mmol/L (3.5-5.1); Protein, Total 5.8 g/dL (5.8-8.1); Sodium 136 mmol/L (136-145)
[2022-05-05 20:21] LABS: INR-International Normal Ratio 1.2; PTT 36.3 sec (22.9-36.1); Prothrombin Time 14.8 sec (12.0-14.7)
[2022-05-05 22:16] LABS: SARS-CoV-2 NAA Rapid Test DETECTED (NotDetected)
[2022-05-06 00:24] LABS: Troponin I 0.035 ng/mL (< 0.028)
[2022-05-06 01:56] VITALS: BMI 24.2
[2022-05-06 04:30] LABS: Troponin I 0.033 ng/mL (< 0.028)
[2022-05-06] MEDS ORDERED: Ondansetron PF 4 MG/2 ML Vial IVP PRN (04:45)
[2022-05-06] MEDS ORDERED: Ondansetron ODT 4 MG TAB PO PRN (04:45)
[2022-05-06] MEDS ORDERED: Acetaminophen 325 MG TAB PO PRN (04:45)
[2022-05-06] MEDS ORDERED: Acetaminophen 650 MG Suppository PR PRN ×2 (04:45→05:32)
[2022-05-06] MEDS ORDERED: Benzonatate 100 MG CAP PO PRN (05:32)
[2022-05-06] MEDS: Dexamethasone 10 MG/ML VIAL SLOW IVP SCH (07:02)
[2022-05-06] MEDS ORDERED: REMDESIVIR 200 MG in Sodium Chloride 0.9% 250 ML 210 ML IV SCH (08:00)
[2022-05-06] MEDS ORDERED: Pantoprazole 40 MG VIAL IVP SCH (09:00)
[2022-05-06] MEDS ORDERED: Enoxaparin Sodium 80 MG/0.8 ML SYRINGE SC SCH (09:00)
[2022-05-06] MEDS: Apixaban 5 MG TAB PO SCH ×2 (09:34→22:11)
[2022-05-06] MEDS: Cholecalciferol (Vitamin D3) 400 UNITS TAB PO SCH (09:34)
[2022-05-06] MEDS: Ascorbic Acid 500 mg Chewable Tablet PO SCH (09:35)
[2022-05-06] MEDS: Zinc Sulfate 220 MG CAP PO SCH (09:35)
[2022-05-06] MEDS ORDERED: Cefepime 2 GM in Sodium Chloride 0.9% 100 ML IVPB SCH (11:00)
[2022-05-06] MEDS ORDERED: Warfarin Sodium 5 MG TAB PO SCH (17:00)
[2022-05-06] MEDS: Cefepime 1 GM in Sodium Chloride 0.9% 100 ML IVPB SCH (22:00)
[2022-05-07] MEDS: Cefepime 1 GM in Sodium Chloride 0.9% 100 ML IVPB SCH ×3 (04:47→17:50)
[2022-05-07] MEDS: Dexamethasone 10 MG/ML VIAL SLOW IVP SCH (05:26)
[2022-05-07 07:22] LABS: Mean Corpuscular HGB CONC 30.6 g/dL (32.0-36.0); Mean Corpuscular Hemoglobin 28.4 pg (27.0-31.0); Mean Platelet Volume 7.6 fL (7.4-10.4); Platelet Count 297 thou/uL (130-400); RBC Distribution Width 16.3 % (11.5-14.5); Red Blood Cell (RBC) Count 3.18 mill/uL (4.70-6.10); White Blood Cell (WBC) Count 18.1 thou/uL (4.8-10.8)
[2022-05-07 07:23] LABS: INR-International Normal Ratio 1.3; Prothrombin Time 16.8 sec (12.0-14.7)
[2022-05-07 07:28] LABS: Anion Gap 13 mmol/L (10-20); BUN (Urea Nitrogen) 22 mg/dL (8.4-25.7); Calc. Creatinine Clearance 63 mL/min (70-130); Calcium 8.7 mg/dL (7.8-10.44); Carbon Dioxide 23 mmol/L (23-31); Chloride 105 mmol/L (98-107); Estimated GFR 73; Glucose 128 mg/dL (83-110); Sodium 137 mmol/L (136-145)
[2022-05-07 08:20] LABS: Band 12 % (5-11); Hypochromia SLIGHT = 6-15 cells (100X) (0-5/hpf); Lymphocytes 4 % (21-51); MDiff Complete? YES; Monocytes 3 % (0-10); Neutrophil 81 % (42-75); Platelet Morphology Comment Appears Adequate; Polychromasia SLIGHT = 2-3 cells (100X) (0-2/hpf)
[2022-05-07] MEDS: Ascorbic Acid 500 mg Chewable Tablet PO SCH (09:58)
[2022-05-07] MEDS: Zinc Sulfate 220 MG CAP PO SCH (09:58)
[2022-05-07] MEDS: Apixaban 5 MG TAB PO SCH ×2 (09:58→20:46)
[2022-05-07] MEDS: REMDESIVIR 100 MG in Sodium Chloride 0.9% 250 ML 230 ML IV SCH (09:59)
[2022-05-07] MEDS: Cholecalciferol (Vitamin D3) 400 UNITS TAB PO SCH (09:59)
[2022-05-07] MEDS: Arformoterol 15 MCG/2 ML NEB NEB SCH (17:50)
[2022-05-07] MEDS: Budesonide 0.5 MG/2 ML NEB NEB SCH (19:15)
[2022-05-07] MEDS ORDERED: Tamsulosin HCl 0.4 MG CAP PO SCH (21:00)
[2022-05-08] MEDS: Cefepime 1 GM in Sodium Chloride 0.9% 100 ML IVPB SCH (04:51)
[2022-05-08] MEDS: Dexamethasone 10 MG/ML VIAL SLOW IVP SCH (05:50)
[2022-05-08 06:04] LABS: INR-International Normal Ratio 1.4; Prothrombin Time 17.6 sec (12.0-14.7)
[2022-05-08 06:16] LABS: ALT (SGPT) 10 U/L (8-55); AST (SGOT) 16 U/L (5-34); Alkaline Phosphatase 63 U/L (40-110); Bilirubin, Direct 0.1 mg/dL (0.1-0.3); Bilirubin, Total 0.2 mg/dL (0.2-1.2); Protein, Total 5.4 g/dL (5.8-8.1)
[2022-05-08] MEDS ORDERED: Ferrous Sulfate 325 MG TAB PO SCH (08:00)
[2022-05-08] MEDS: Zinc Sulfate 220 MG CAP PO SCH (08:27)
[2022-05-08] MEDS: Cholecalciferol (Vitamin D3) 400 UNITS TAB PO SCH (08:27)
[2022-05-08] MEDS: Apixaban 5 MG TAB PO SCH (08:27)
[2022-05-08] MEDS: REMDESIVIR 100 MG in Sodium Chloride 0.9% 250 ML 230 ML IV SCH (08:28)
[2022-05-08] MEDS ORDERED: Aspirin 81 mg Enteric Coated Tablet PO SCH (09:00)
[2022-05-08] MEDS ORDERED: Ascorbic Acid 500 mg Chewable Tablet PO SCH (09:00)
[2022-05-08] MEDS ORDERED: Furosemide 20 MG TAB PO SCH (09:00)
[2022-05-08] MEDS ORDERED: Stress 600 With Zinc 1 TAB PO SCH (09:00)
[2022-05-08] MEDS ORDERED: Losartan 25 MG TAB PO SCH ×2 (09:00)
[2022-05-08] MEDS ORDERED: Amlodipine 10 MG TAB PO SCH (09:00)
[2022-05-08 12:55] VITALS: BP 155/61; TEMP 98
[2022-05-08] MEDS: Arformoterol 15 MCG/2 ML NEB NEB SCH (12:58)
[2022-05-08] MEDS: Budesonide 0.5 MG/2 ML NEB NEB SCH (12:58)
== END 2022-05-08 17:04 | disposition home or self-care (01) | DRG 871 ==
LOC: ERS 19:06 → T4-B 22:17 → OBSVTOIN 05-06 10:52
PROVIDERS: ADMIT Family Medicine; ATTEND Student in an Organized Health Care Education/Training Program
PROC: XW033E5 Introduction of Remdesivir Anti-infective into Peripheral Vein, Percutaneous Approach, New Technology Group 5 (ICD-10-PCS; principal; 2022-05-06)
PROC: 8E0ZXY6 Isolation (ICD-10-PCS; 2022-05-06)
DX: A41.81 Sepsis due to Enterococcus (principal); I26.99 Other pulmonary embolism without acute cor pulmonale; U07.1 COVID-19; J96.01 Acute respiratory failure with hypoxia; I27.82 Chronic pulmonary embolism; R65.20 Severe sepsis without septic shock; J44.9 Chronic obstructive pulmonary disease, unspecified; I73.9 Peripheral vascular disease, unspecified; I10 Essential (primary) hypertension; R91.1 Solitary pulmonary nodule; R32 Unspecified urinary incontinence; Z95.828 Presence of other vascular implants and grafts; Z79.899 Other long term (current) drug therapy; Z79.82 Long term (current) use of aspirin; Z79.01 Long term (current) use of anticoagulants; Z87.891 Personal history of nicotine dependence
CPT/HCPCS: 36415; 36416; 71045; 71275; 80048; 80053; 80076; 83605; 83880; 84484; 85025; 85610; 85730; 87040; 87077; 87086; 87149; 87186; 87205; 93005; 94640; 94760; 96374; 96375; C9113; G0378; J0248; J0692; J1100; J3490; J7050; J7626; Q9967; U0002